=== PATIENT | male | born 1975 | race Caucasian/White ===

== ENCOUNTER 2018-02-14 10:35 | Outpatient (CLI) | payer OTHER ==
--- NOTE | 2018-02-14 13:43 | PET ---
PET CT: HISTORY: A 42-year-old male with a solitary pulmonary nodule in the left lung. TECHNIQUE: PET scanning with CT attenuation correction was performed from the base of the brain to the proximal thighs, following the intravenous administration of 11.4 millicuries of F18 fluorodeoxyglucose in the right hand. Imaging was performed after an uptake interval of 48 minutes. FINDINGS: No hypermetabolic activity is seen in the approximately 1 cm parenchymal lung nodule in the left lowe r lobe. No corbin hypermetabolism is noted in the neck, chest, abdomen, or pelvis. No hypermetabolic liver, a drenal, or skeletal lesions are seen. There is physiologic activity in the GI and tracts, heart, and visualized portions of the brain. CT scan used for attenuation correction demonstrates no evidence of pleural effusions or ascites. A couple liver cysts are present. There is a tiny, nonobstructing left renal calculus. IMPRESSION: No abnormal fluorodeoxyglucose localization in the left lung nodule to suggest malignancy. Follow-up CT scan is recommended in six months. POS: [facility]
== END 2018-02-14 10:36 | disposition home or self-care (01) ==
LOC: PET 10:35
PROVIDERS: ATTEND Family Medicine
DX: R91.1 Solitary pulmonary nodule (principal)
CPT/HCPCS: 78815; A9552

== ENCOUNTER 2019-06-11 09:00 | Outpatient (CLI) | payer OTHER ==
--- NOTE | 2019-06-11 09:41 | ULT ---
Exam: Bilateral renal ultrasound HISTORY: Low kidney function COMPARISON: None FINDINGS: Right kidney: Normal cortical echotexture. No hydronephrosis. Right kidney measurements: 10.6 x 5.9 x 5.7 cm. Left kidney: Normal cortical echotexture. No hydronephrosis Left kidney measurements 10.4 x 5.5 x 5.7 cm. Urinary bladder: Normal mucosa. IMPRESSION: No hydronephrosis.
== END 2019-06-11 09:01 | disposition home or self-care (01) ==
LOC: BICULT 09:00
PROVIDERS: ATTEND Family Medicine
DX: R94.4 Abnormal results of kidney function studies (principal)
CPT/HCPCS: 76770